=== PATIENT | male | born 1955 | race Caucasian/White ===

== ENCOUNTER 2016-06-25 21:35 | Observation (INO) ==
[2016-06-25] MEDS ORDERED: LORazepam 2 MG/1 ML VIAL IV STA (21:53)
[2016-06-25] MEDS ORDERED: ONDANSETRON 4 MG/2 ML VIAL IV STA (21:53)
[2016-06-25] MEDS ORDERED: MORPHINE 10 MG/1 ML VIAL IV STA (21:53)
[2016-06-25] MEDS ORDERED: ONDANSETRON 4 MG/2 ML VIAL ONE (21:58)
[2016-06-25] MEDS ORDERED: FUROSEMIDE 40 MG/4 ML VIAL IV STA (21:59)
[2016-06-25] MEDS ORDERED: MORPHINE 2 MG/1 ML SYRINGE ONE (21:59)
[2016-06-25] MEDS ORDERED: LORazepam 2 MG/1 ML VIAL ONE (21:59)
[2016-06-25] MEDS ORDERED: FUROSEMIDE 40 MG/4 ML VIAL ONE (22:26)
[2016-06-25] MEDS ORDERED: traMADol 50 MG TABLET PO PRN (22:30)
[2016-06-25] MEDS ORDERED: chlorproMAZINE INJ 25 MG in SODIUM CHLORIDE 0.9% 100 ML IV PRN (22:30)
[2016-06-25] MEDS ORDERED: LOPERAMIDE 2 MG CAPSULE PO PRN ×2 (22:30)
[2016-06-25] MEDS ORDERED: chlorproMAZINE 25 MG TABLET PO PRN (22:30)
[2016-06-25] MEDS ORDERED: BENZTROPINE 2 MG/2 ML AMP IV PRN (22:30)
[2016-06-25] MEDS ORDERED: guaiFENesin 200 MG/10 ML UDCUP PO PRN (22:30)
[2016-06-25] MEDS ORDERED: ALPRAZolam 0.25 MG TABLET PO PRN (22:30)
[2016-06-25] MEDS ORDERED: MAGNESIUM HYDROXIDE SUSP 30 ML UDCUP PO PRN (22:30)
[2016-06-25] MEDS ORDERED: LACTULOSE 20 GM/30 ML UDCUP PO PRN (22:30)
[2016-06-25] MEDS ORDERED: TEMAZEPAM 7.5 MG CAPSULE PO PRN (22:30)
[2016-06-25] MEDS ORDERED: MYLANTA/LIDO VISC 2:1 300 ML BOTTLE SWISH/SPIT PRN (22:30)
[2016-06-25] MEDS ORDERED: ALUMINUM/MAGNES/SIMETH MAX STR 30 ML UDCUP PO PRN (22:30)
[2016-06-25] MEDS ORDERED: ONDANSETRON 4 MG/2 ML VIAL IV PRN (22:30)
[2016-06-25] MEDS ORDERED: diphenhydrAMINE CAP 25 MG CAPSULE PO PRN (22:30)
[2016-06-25] MEDS ORDERED: chlorproMAZINE INJ 50 MG in SODIUM CHLORIDE 0.9% 100 ML IV PRN (22:30)
[2016-06-25] MEDS ORDERED: ACETAMINOPHEN 325 MG TABLET PO PRN (22:30)
[2016-06-25] MEDS ORDERED: MYLANTA/LIDO VISC 2:1 300 ML BOTTLE SWISH/SWAL PRN (22:30)
[2016-06-25] MEDS ORDERED: PROMETHAZINE INJ 25 MG in SODIUM CHLORIDE 0.9% 50 ML IV PRN (22:30)
[2016-06-25] MEDS ORDERED: LORazepam 2 MG/1 ML VIAL IV PRN (22:33)
--- NOTE | 2016-06-25 22:34 | Emergency Department Note ---
IRossy Gwan, am scribing for, and in the presence of, Reinaldo Llanos MD 22:02. IViet Kevin Lee, MD, personally performed the services described in this documentation, ascribed by Maddy Blair in my presence, and it is both accurate and complete . Arrival - Arrival Chief Complaint: Shortness of Breath Stated Complaint: Resp Distress ED Nursing Triage Note: EMS CALLED FOR SOB, ON ARRIVAL PATIENT WAS ON 10L O2 WITH SAT IN THE UPPER 70'S. O2 SAT IN ER 88% WITH 15L NRB MASK. PATIENT WAS SEEN IN ER THIS AM, HX LUNG CA. Mode of Arrival: Stretcher Limitations: No Limitations Source: Patient, Significant other (), Old Records Reviewed, RN Notes Reviewed - History of Present Illness HPI Narrative: Pt is a 60 y/o male, with a hx of Lung CA, who presents to ED via EMS with c/o SOB. Nurses noted that pt was on 10L O2 with sat in the upper 70's. While in ED , pt's O2 sat was 88% with 15L NRB mask. Patient was last seen in ED earlier today and ED physician instructed to assure that pt remains comfortable which included plenty O2 and pain medication due to terminal CA and DNR. noted that she took pt home and realized that she was running out of oxygen. She then alerted company to supply more oxygen tanks and they informed her that they could not comply and instructed to report back to ED for assistance. She continued to note that pt became combative and that she was having a hard time controlling him. This prompted them to report back to ED tonight. Patient is being followed by Dr. Lord . confirmed that pt was given Lasix and 15mg Morphine [employer]. She denies that pt has voided more than twice. No other problems/complaints reported in ED. Onset (ago): hour(s) Consistency: constant Severity: severe Allergies/Adverse Reactions: Allergies Allergy/AdvReac Type Severity Reaction Status Date / Time codeine Allergy Intermediate ITCHING Verified 04/04/16 16:27 Home Medications: Home Medications Medication Instructions Recorded Confirmed Type ALPRAZolam [Xanax] 0.25 mg PO Q6H PRN 06/25/16 06/25/16 History Albuterol Sulfate [Proair HFA] 2 puff INH Q1H PRN 06/25/16 06/25/16 History Aspirin EC Tab 325 mg PO DAILY 06/25/16 06/25/16 History Cholecalciferol (Vitamin D3) 50,000 unit PO Q7D 06/25/16 06/25/16 History [Vitamin D3] Cyclobenzaprine HCl 10 mg PO QID PRN 06/25/16 06/25/16 History Ezetimibe [Zetia] 10 mg PO DAILY 06/25/16 06/25/16 History Furosemide Tab [Lasix Tab] 80 mg PO BID 06/25/16 06/25/16 History Levofloxacin Tab [Levaquin Tab] 500 mg PO DAILY #10 tablet 06/25/16 Rx Lisinopril 2.5 mg PO DAILY 06/25/16 06/25/16 History Magnesium Oxide 400 mg PO DAILY 06/25/16 06/25/16 History Montelukast Tab [Singulair Tab] 10 mg PO BEDTIME 06/25/16 06/25/16 History Morphine Ir Tab [Morphine IR Tab] 15 mg PO BID PRN 06/25/16 06/25/16 History Pantoprazole Tab [Protonix Tab] 40 mg PO DAILY 06/25/16 06/25/16 History Potassium Chloride [Klor-Con M20] 20 meq PO DAILY 06/25/16 06/25/16 History Potassium Gluconate 500 mg PO DAILY 06/25/16 06/25/16 History Sertraline HCl 50 mg PO DAILY 06/25/16 06/25/16 History Umeclidinium Brm/Vilanterol Tr 1 puff INH DAILY 06/25/16 06/25/16 History [Anoro Ellipta] buPROPion XL [Wellbutrin Xl] 450 mg PO DAILY 06/25/16 06/25/16 History predniSONE TAB [PredniSONE] 40 mg PO DAILY 06/25/16 06/25/16 History Review of System - Review of System 12 point system: reviewed and no additional remarkable complaints except as stated - Review of System Respiratory: Present: as per HPI, other (shortness of breathe) Medical,Surgical,& Family Hx - Medical History Respiratory: History of: Lung Cancer - Surgical History Cardiac Surgeries: Sugical HX of: Cardiac Catheterization (stents times 4) - Social History Smoking Status: Never smoker Frequency of Alcohol Use: None Type of Drug Use: None Exam Vital Signs: Vital Signs Temperature 97.7 F 06/25/16 21:43 Pulse Rate 119 H 06/25/16 21:43 Respiratory Rate 16 06/25/16 21:43 Blood Pressure 104/71 06/25/16 21:43 O2 Sat by Pulse Oximetry 88 L 06/25/16 21:43 - General General appearance: alert - Head Head exam: Present: atraumatic, normocephalic - ENT ENT exam: Present: normal oropharynx, mucous membranes moist, TM's normal bilaterally, normal external ear exam - Neck Neck exam: Present: full ROM, trachea midline. Absent: tenderness - Chest Chest inspection: Present: symmetric chest wall rise. Absent: tenderness - Cardiovascular Cardiovascular exam: Present: regular rate, normal rhythm, normal heart sounds. Absent: murmur - Extremities Exam Extremities exam: Present: full ROM. Absent: tenderness - Back Exam Back exam: Present: full ROM. Absent: tenderness - Neurological Exam Neurological exam: Present: alert - Skin Skin exam: Present: warm, dry, intact, normal color Results - Diagnostic Findings Procedure: Chest x-ray: image reviewed by me (see report from earlier today) Disposition Clinical Impression: Hypoxia Case discussed with: patient's family Disposition: Still a Patient Condition: Guarded
[2016-06-25] MEDS ORDERED: MORPHINE 2 MG/1 ML SYRINGE IV PRN (23:00)
[2016-06-26 05:14] VITALS: BP 82/46
--- NOTE | 2016-06-27 05:58 | Oncology History&Physical ---
History of Present Illness History of present illness: Mr. Cordon is a 60 year old male advanced lung cancer who was recently placed on supportive care only and was likely going to be converted to hospice care who presented to the emergency room with severe shortness of breath. He was admitted for high flow oxygen and morphine to help with his air hunger. Patient remains DNR so we have no plans for advanced life support measures. He was given large doses of morphine and seemed to have good relief in his air hunger. However patient continued to decline ultimately with his at bedside shortly after admission. Home Medications Medication Instructions Recorded Confirmed Type ALPRAZolam [Xanax] 0.25 mg PO Q6H PRN 06/25/16 06/26/16 History Albuterol Sulfate [Proair HFA] 2 puff INH Q1H PRN 06/25/16 06/26/16 History Aspirin EC Tab 325 mg PO DAILY 06/25/16 06/26/16 History Cholecalciferol (Vitamin D3) 50,000 unit PO Q7D 06/25/16 06/26/16 History [Vitamin D3] Cyclobenzaprine HCl 10 mg PO QID PRN 06/25/16 06/26/16 History Ezetimibe [Zetia] 10 mg PO DAILY 06/25/16 06/26/16 History Furosemide Tab [Lasix Tab] 80 mg PO BID 06/25/16 06/26/16 History Levofloxacin Tab [Levaquin Tab] 500 mg PO DAILY #10 tablet 06/25/16 06/26/16 Rx Lisinopril 2.5 mg PO DAILY 06/25/16 06/26/16 History Magnesium Oxide 400 mg PO DAILY 06/25/16 06/26/16 History Montelukast Tab [Singulair Tab] 10 mg PO BEDTIME 06/25/16 06/26/16 History Morphine Ir Tab [Morphine IR Tab] 15 mg PO BID PRN 06/25/16 06/26/16 History Pantoprazole Tab [Protonix Tab] 40 mg PO DAILY 06/25/16 06/26/16 History Potassium Chloride [Klor-Con M20] 20 meq PO DAILY 06/25/16 06/26/16 History Potassium Gluconate 500 mg PO DAILY 06/25/16 06/26/16 History Sertraline HCl 50 mg PO DAILY 06/25/16 06/26/16 History Umeclidinium Brm/Vilanterol Tr 1 puff INH DAILY 06/25/16 06/26/16 History [Anoro Ellipta] buPROPion XL [Wellbutrin Xl] 450 mg PO DAILY 06/25/16 06/26/16 History predniSONE TAB [PredniSONE] 40 mg PO DAILY 06/25/16 06/26/16 History Allergies Allergy/AdvReac Type Severity Reaction Status Date / Time codeine Allergy Intermediate ITCHING Verified 04/04/16 16:27 Medical,Surgical,& Family Hx - Medical History Cardio: History of: CHF, Hypertension, [place] ([place] x5) Respiratory: History of: COPD, Lung Cancer Gastrointestinal: History of: GI Problems (Acid reflux) Musculoskeletal: History of: Back/Neck Problems (Arthritis in his back) - Surgical History Cardiac Surgeries: Sugical HX of: Cardiac Catheterization (stents times 4) Thoracic Surgeries: Patient denies;: Lobectomy Abdominal Surgeries: Patient denies: Abdominal Surgery - Family History Family History: Reports;: Family Cancer (Father of lung. Sister has a brain tumor), Family Diabetes (Mother had DM) - Social History Smoking Status: Never smoker Frequency of Alcohol Use: None Type of Drug Use: None
== END 2016-06-26 04:24 | disposition expired ==
LOC: EDUNIT# → EDBD → N.ED 21:35 → N.EDINP 21:35 → N.4E 06-26 00:19
PROVIDERS: ADMIT Specialist; ATTEND Specialist